=== PATIENT | female | born 1970 | race Caucasian/White ===

== ENCOUNTER 2018-05-21 16:29 | Emergency (ER) | payer OTHER, SELFPAY ==
[2018-05-21 16:36] VITALS: BP 157/93; PULSE 124; RESP 14; TEMP 36.5; O2SAT 96
--- NOTE | 2018-05-21 16:49 | W.ED.GENAD ---
Discharge Plan Disposition Patient Disposition: HOME Condition: Stable Discharge Details Chief Complaint: Nk/Back Pain Clinical Impression: Lumbar strain ED Provider: Theodore Garcia Home Meds and New Rx's Prescriptions: New cyclobenzaprine 10 mg tablet 10 mg PO TID PRN (Reason: muscle spasm) Qty: 30 RF: 0 No Action lisinopril-hydrochlorothiazide 20-12.5 mg Tablet 1 tab PO BID RF: 0 aspirin [Aspir-81] 81 mg Tablet,Delayed Release (Dr/Ec) 81 mg PO DAILY RF: 0 diltiazem HCl [Cardizem] 120 mg Tablet 240 mg PO BID RF: 0 levothyroxine [Synthroid] 112 mcg Tablet 112 mcg PO DAILY RF: 0 insulin NPH and regular human [Novolin 70-30 FlexPen U-100] 100 unit/mL (70-30) Insulin Pen 10 unit SUBCUT BID RF: 0 Discharge Instructions Instructions: Low Back Strain (ED) Additional Instructions: take 1000mg tylenol and 600mg ibuprofen every 6 hours for pain as needed. If you need more pain relief take 1 cyclobenzaprine. 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 She states she has spinal stenosis and has hx of back pain. She denies any difficulty urinating, fevers, chills. She is ambulating with normal gait, no saddle anesthesia, no midline pain and normal distal sensation and pulses and 5/5 strength in hip flexion/extension, knee felxion/extension and ankle flexion/extension. She denies falling or hitting her head. Has pain across lumbar region. I suspect she has lumbar strain vs muscle strain vs disc herniation. No finidngs at this time to suggest cauda equina or sea so do not feel emergent mri indicated. She had no falls and no significant trauma so doubt fx so do not feel xray/ct indicated. Will have her start ibuprofen/tyleonl and muscle relaxers. She is here as a traveler doing work and pcp is in [place], will provide her with referral to PT if she is not improving in a few days. return precautions givne. Has no abdominal pain or tenderness on exam to suggest entities such as ovarian cyst, cholecystitis or other surgical pathology Differential Diagnosis lumbar strain, disc herniation, muscle spasm, muscle strain HPI General Mode of arrival: ambulatory. Date/Time Provider Initiated Documentation: 05/21/18 16:33. Limitations to Documentation: no limitations. Information obtained by: patient. History of Present Illness 48 year old F presents to the emergency department with the chief complaint of low back pain, described as severe, with intensity rated at 7. Quality is described as aching, and is localized to the back. Patient reports no radiation. Patient started experiencing this hour(s) (1) and it has been constant. No relieving factors improve symptom(s), No exacerbating factors reported . Patient notes no other symptoms.. Patient did receive the following treatments prior to arrival, other (acetaminophen) Related Data Home Medications Medication Instructions Recorded Confirmed aspirin [Aspir-81] 81 mg PO DAILY 05/21/18 05/21/18 cyclobenzaprine 10 mg PO TID PRN #30 tab 05/21/18 diltiazem HCl [Cardizem] 240 mg PO BID 05/21/18 05/21/18 insulin NPH and regular human 10 unit SUBCUT BID 05/21/18 05/21/18 [Novolin 70-30 FlexPen U-100] levothyroxine [Synthroid] 112 mcg PO DAILY 05/21/18 05/21/18 lisinopril-hydrochlorothiazide 1 tab PO BID 05/21/18 05/21/18 Previous Rx's Medication Instructions Recorded cyclobenzaprine 10 mg PO TID PRN #30 tab 05/21/18 Allergies Allergy/AdvReac Type Severity Reaction Status Date / Time nitroglycerin Allergy Unverified 05/21/18 16:41 General Stated Complaint: Nk/Back Pain DADA: 4 Review of Systems Review of Systems All systems reviewed & are unremarkable except as noted in HPI and below Constitutional Denies chills, Denies fever(s) and Denies weakness ENT Denies change in voice Cardiovascular Denies chest pain and Denies dyspnea Respiratory Denies dyspnea Gastrointestinal Denies abdominal pain, Denies nausea and Denies vomiting Musculoskeletal Denies joint swelling Integumentary/Breasts Denies rash Neurologic Denies weakness PFSH Social History Smoking/Tobacco Use Status: Current every day Exam Const General: no acute distress Orientation: alert HENMT Head: normal to inspection Ears: external ears normal General nose exam: external nose normal Mouth: moist mucous membranes Eyes General: appearance normal, both eyes and all related structures Neck Neck: normal visual inspection Resp Effort & Inspection: normal respiratory effort and able to speak in complete sentences Cardio Rhythm: regular rhythm Skin General skin exam: no rashes or lesions noted Neuro General: alert and oriented x3 Extrem General: normal to inspection Psych Mental Status: mental status grossly normal Course Vital Signs Temperature 36.5 C 05/21/18 16:36 Pulse 124 H 05/21/18 16:36 Respiratory Rate 14 05/21/18 16:36 Blood Pressure 157/93 H 05/21/18 16:36 Pulse Oximetry 96 05/21/18 16:36 Temperature 36.5 C 05/21/18 16:36 Temperature Source Temporal Artery Scan 05/21/18 16:36 Pulse 124 H 05/21/18 16:36 Respiratory Rate 14 05/21/18 16:36 Respiratory Effort Non-Labored 05/21/18 16:39 Blood Pressure 157/93 H 05/21/18 16:36 Blood Pressure Position Sitting 05/21/18 16:36 Pulse Oximetry 96 05/21/18 16:36 Oxygen Delivery Method Room Air 05/21/18 16:36 Oxygen Flow Rate 0 05/21/18 16:36 Pain Level 10 05/21/18 16:36
[2018-05-21] MEDS: Ibuprofen 600 MG TAB (16:51)
--- NOTE | 2018-05-21 16:54 | ED.GENADUL_ITS ---
Discharge Plan Disposition Patient Disposition: HOME Condition: Stable Discharge Details Chief Complaint: Nk/Back Pain Clinical Impression: Lumbar strain ED Provider: Theodore Garcia Home Meds and New Rx's Prescriptions: New cyclobenzaprine 10 mg tablet 10 mg PO TID PRN (Reason: muscle spasm) Qty: 30 RF: 0 No Action lisinopril-hydrochlorothiazide 20-12.5 mg Tablet 1 tab PO BID RF: 0 aspirin [Aspir-81] 81 mg Tablet,Delayed Release (Dr/Ec) 81 mg PO DAILY RF: 0 diltiazem HCl [Cardizem] 120 mg Tablet 240 mg PO BID RF: 0 levothyroxine [Synthroid] 112 mcg Tablet 112 mcg PO DAILY RF: 0 insulin NPH and regular human [Novolin 70-30 FlexPen U-100] 100 unit/mL (70-30 ) Insulin Pen 10 unit SUBCUT BID RF: 0 Discharge Instructions Instructions: Low Back Strain (ED) Additional Instructions: take 1000mg tylenol and 600mg ibuprofen every 6 hours for pain as needed. If you need more pain relief take 1 cyclobenzaprine. 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 She states she has spinal stenosis and has hx of back pain. She denies any difficulty urinating, fevers, chills. She is ambulating with normal gait, no saddle anesthesia, no midline pain and normal distal sensation and pulses and 5/5 strength in hip flexion/ extension, knee felxion/extension and ankle flexion/extension. She denies falling or hitting her head. Has pain across lumbar region. I suspect she has lumbar strain vs muscle strain vs disc herniation. No finidngs at this time to suggest cauda equina or sea so do not feel emergent mri indicated. She had no falls and no significant trauma so doubt fx so do not feel xray/ct indicated. Will have her start ibuprofen/tyleonl and muscle relaxers. She is here as a traveler doing work and pcp is in [place], will provide her with referral to PT if she is not improving in a few days. return precautions givne. Has no abdominal pain or tenderness on exam to suggest entities such as ovarian cyst, cholecystitis or other surgical pathology Differential Diagnosis lumbar strain, disc herniation, muscle spasm, muscle strain HPI General Mode of arrival: ambulatory . Date/Time Provider Initiated Documentation: 05/21/18 16:33 . Limitations to Documentation: no limitations . Information obtained by: patient . History of Present Illness 48 year old F presents to the emergency department with the chief complaint of low back pain, described as severe, with intensity rated at 7. Quality is described as aching, and is localized to the back. Patient reports no radiation. Patient started experiencing this hour(s) (1) and it has been constant. No relieving factors improve symptom(s), No exacerbating factors reported . Patient notes no other symptoms.. Patient did receive the following treatments prior to arrival, other (acetaminophen) Related Data Home Medications Medication Instructions Recorded Confirmed aspirin [Aspir-81] 81 mg PO DAILY 05/21/18 05/21/18 cyclobenzaprine 10 mg PO TID PRN #30 tab 05/21/18 diltiazem HCl [Cardizem] 240 mg PO BID 05/21/18 05/21/18 insulin NPH and regular human 10 unit SUBCUT BID 05/21/18 05/21/18 [Novolin 70-30 FlexPen U-100] levothyroxine [Synthroid] 112 mcg PO DAILY 05/21/18 05/21/18 lisinopril-hydrochlorothiazide 1 tab PO BID 05/21/18 05/21/18 Previous Rx's Medication Instructions Recorded cyclobenzaprine 10 mg PO TID PRN #30 tab 05/21/18 Allergies Allergy/AdvReac Type Severity Reaction Status Date / Time nitroglycerin Allergy Unverified 05/21/18 16:41 General Stated Complaint: Nk/Back Pain DADA: 4 Review of Systems Review of Systems All systems reviewed & are unremarkable except as noted in HPI and below Constitutional Denies chills, Denies fever(s) and Denies weakness ENT Denies change in voice Cardiovascular Denies chest pain and Denies dyspnea Respiratory Denies dyspnea Gastrointestinal Denies abdominal pain, Denies nausea and Denies vomiting Musculoskeletal Denies joint swelling Integumentary/Breasts Denies rash Neurologic Denies weakness PFSH Social History Smoking/Tobacco Use Status: Current every day Exam Const General: no acute distress Orientation: alert HENMT Head: normal to inspection Ears: external ears normal General nose exam: external nose normal Mouth: moist mucous membranes Eyes General: appearance normal, both eyes and all related structures Neck Neck: normal visual inspection Resp Effort & Inspection: normal respiratory effort and able to speak in complete sentences Cardio Rhythm: regular rhythm Skin General skin exam: no rashes or lesions noted Neuro General: alert and oriented x3 Extrem General: normal to inspection Psych Mental Status: mental status grossly normal Course Vital Signs Temperature 36.5 C 05/21/18 16:36 Pulse 124 H 05/21/18 16:36 Respiratory Rate 14 05/21/18 16:36 Blood Pressure 157/93 H 05/21/18 16:36 Pulse Oximetry 96 05/21/18 16:36 Temperature 36.5 C 05/21/18 16:36 Temperature Source Temporal Artery Scan 05/21/18 16:36 Pulse 124 H 05/21/18 16:36 Respiratory Rate 14 05/21/18 16:36 Respiratory Effort Non-Labored 05/21/18 16:39 Blood Pressure 157/93 H 05/21/18 16:36 Blood Pressure Position Sitting 05/21/18 16:36 Pulse Oximetry 96 05/21/18 16:36 Oxygen Delivery Method Room Air 05/21/18 16:36 Oxygen Flow Rate 0 05/21/18 16:36 Pain Level 10 05/21/18 16:36
== END 2018-05-21 17:00 | disposition home or self-care (01) ==
LOC: ER 17:07
PROVIDERS: Emergency Provider Emergency Medicine
DX: S39.012A Strain of muscle, fascia and tendon of lower back, initial encounter (principal); X50.3XXA Overexertion from repetitive movements, initial encounter; E11.9 Type 2 diabetes mellitus without complications; Z79.4 Long term (current) use of insulin
CPT/HCPCS: 99282